=== PATIENT | female | born 1995 | race Caucasian/White ===

== ENCOUNTER 2016-12-15 15:35 | Emergency (ER) | payer OTHER ==
[~2016-12-15] VITALS: Ht 162.6 cm; Wt 48.0 kg
[~2016-12-15 15:35] MED LIST: FIORIC PO
[2016-12-15 15:40] VITALS: BP 104/66; PULSE 65; RESP 16; TEMP 98.2; O2SAT 98
[2016-12-15] MEDS ORDERED: PERM5CRE TOPICAL (15:59)
--- NOTE | 2016-12-15 16:06 | PD ---
HPI Chief Complaint: Skin Problem Time Seen by Provider: 16:00 Travel History International Travel<30 days: No Contact w/Intl Traveler<30days: No Traveled to known affect area: No History of Present Illness HPI 21-year-old presents to the emergency room for evaluation of itchy red spots that have been ongoing for the past week. Patient thought that they were bug bites but states they seem to be spreading. They started on her thighs and have since spread to her abdomen, bra line, ankles, left upper arm, and right wrist. She states itching is severe. She took Benadryl one time which didn't relieve her symptoms. Her boyfriend has similar symptoms between his fingers. PFSH Past Medical History Developmental Delay: Yes Diminished Hearing: No Gastrointestinal Disorders: Yes ("CHRONIC CONSTIPATION") Kidney Stones: Yes Immunizations Current: Yes Migraines: Yes Tetanus Vaccination: < 5 Years Influenza Vaccination: No ?: Not : 0 Social History Alcohol Use: No Tobacco Use: Yes (1/2 PPD) Substance Use: No Allergies-Medications (Allergen,Severity, Reaction): Coded Allergies: Benadryl (Unverified Allergy, Severe, RASH, 12/15/16) Latex (Unverified Allergy, Severe, RASH, 12/15/16) Reported Meds & Prescriptions Reported Meds & Active Scripts Active Review of Systems Except as stated in HPI: all other systems reviewed are Neg Physical Exam Narrative GENERAL: Well-nourished, well-developed female in no acute distress. Afebrile. Ambulatory. SKIN: Focused skin assessment warm/dry. There are multiple 1 mm maculopapular, erythematous lesions to the abdomen, waistline, ankles, and wrist. No excoriations. Breakfast, lunch, dinner sign. Some burrowing noted. HEAD: Normocephalic. EYES: No scleral icterus. No injection or drainage. NECK: Supple, trachea midline. No JVD or lymphadenopathy. CARDIOVASCULAR: Regular rate and rhythm without murmurs, gallops, or rubs. RESPIRATORY: Breath sounds equal bilaterally. No accessory muscle use. PSYCHIATRIC: No delusional thought processes. No hallucinations. Data Data Last Documented VS Vital Signs Date Time Temp Pulse Resp B/P Pulse Ox O2 Delivery O2 Flow Rate FiO2 12/15/16 15:40 98.2 65 16 104/66 98 MDM Medical Decision Making Medical Screen Exam Complete: Yes Emergency Medical Condition: Yes Medical Record Reviewed: Yes Differential Diagnosis Allergic reaction versus contact dermatitis versus scabies Narrative Course 21-year-old female presents to the emergency room for evaluation of itchy rash for the past week. Patient thought they were bug bites but they kept spreading. Mostly located around thighs, wrist, and abdomen. Boyfriend has similar symptoms in interdigital webspaces. Physical exam reveals multiple 1 mm maculopapular, erythematous lesions to the abdomen, waistline, ankles, and wrist. No excoriations. Breakfast, lunch, dinner sign. Some burrowing noted. History and physical exam are consistent with scabies. Patient discharged with permethrin and told to follow up with her primary care physician or return for worsening symptoms. She understands and agrees to plan. Diagnosis Primary Impression: Scabies Referrals: Primary Care Physician Patient Instructions: General Instructions, Scabies (ED) Additional Instructions: Rest and drink plenty of fluids. Apply cream to entire body. Leave on for 8 hours. Wash off. Reapply in one week if new spots appear. Follow-up with a primary care physician. Return to the emergency room for worsening symptoms. Med/Other Pt SpecificInfo: Prescription(s) given Scripts Permethrin Topical 5% 5% Cream1 Applic TOPICAL ONCE #1 TUBE Ref 0 Prov:Cesar Sutehrland MD 12/15/16 Disposition: 01 DISCHARGE HOME Condition: Stable Maddy Lane Dec 15, 2016 16:06
== END 2016-12-15 16:13 | disposition home or self-care (01) ==
LOC: PHEFT 15:35
DX: B86 Scabies (principal); F17.200 Nicotine dependence, unspecified, uncomplicated; Z87.19 Personal history of other diseases of the digestive system; Z87.448 Personal history of other diseases of urinary system; Z86.69 Personal history of other diseases of the nervous system and sense organs
CPT/HCPCS: 99283

== ENCOUNTER 2017-03-24 19:26 | Emergency (ER) | payer OTHER ==
[~2017-03-24] VITALS: Ht 165.1 cm; Wt 47.7 kg
[~2017-03-24 19:26] MED LIST changes: -FIORIC PO; +PERM5CRE TOPICAL
[2017-03-24 19:32] VITALS: BP 115/67; PULSE 97; RESP 18; TEMP 98.5; O2SAT 97
[2017-03-24] MEDS ORDERED: ZOFR4TAB PO (19:46)
[2017-03-24] MEDS ORDERED: OMEP20TA PO (19:46)
--- NOTE | 2017-03-24 19:53 | PD ---
HPI Chief Complaint: GI Complaint Time Seen by Provider: 19:49 Travel History International Travel<30 days: No Contact w/Intl Traveler<30days: No Traveled to known affect area: No History of Present Illness HPI The patient is a 21-year-old female that complains of vomiting and headache for a month. She saw her primary care physician in [address] [place] [address] and he gave her only 8, 4 mg Zofran. She states she is trying to save them and did not take any Zofran today. 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 She also complains of generalized myalgias. She was referred to a frame table operator helper and she will set up an appointment tomorrow for this. She denies vomiting any blood. She denies any fever. She denies any wheezing. She states she has left lower abdominal pain which is a 6/10. The pain is a burning type of pain. Her last menstrual period was light and it was on the 24th of last month. In addition to 4 mg Zofran and she was given omeprazole 20 mg to take once daily. PFSH Past Medical History Cardiovascular Problems: Yes (HEART BEATS FAST AND IRREG) Developmental Delay: Yes Diminished Hearing: No Gastrointestinal Disorders: Yes ("CHRONIC CONSTIPATION") Kidney Stones: Yes Immunizations Current: Yes Migraines: Yes ?: Not LMP: 02-28-17 : 0 Social History Alcohol Use: No Tobacco Use: Yes (/ PPD) Substance Use: No Allergies-Medications (Allergen,Severity, Reaction): Coded Allergies: diphenhydramine (Unverified Allergy, Severe, RASH, 03/24/17) latex (Unverified Allergy, Severe, RASH, 03/24/17) Reported Meds & Prescriptions Reported Meds & Active Scripts Active Zofran (Ondansetron HCl) 8 Mg Tab 8 Mg PO TID Reported Metoprolol Tartrate 25 Mg Tab 25 Mg PO DAILY Abilify (Aripiprazole) 10 Mg Tab 10 Mg PO DAILY Fluoxetine (Fluoxetine HCl) 20 Mg Capsule 20 Mg PO DAILY Zofran (Ondansetron HCl) 4 Mg Tab 4 Mg PO Q12HR PRN Omeprazole 20 Mg Tab 20 Mg PO DAILY Review of Systems Except as stated in HPI: all other systems reviewed are Neg Physical Exam Narrative GENERAL: The patient is alert, oriented 3, slightly dehydrated-appearing and no respiratory distress. Her vital signs are normal. SKIN: Focused skin assessment warm/dry. HEAD: Atraumatic. Normocephalic. EYES: Pupils equal and round. No scleral icterus. No injection or drainage. ENT: No nasal bleeding or discharge. Mucous membranes pink and moist. NECK: Trachea midline. No JVD. CARDIOVASCULAR: Regular rate and rhythm. No murmur appreciated. RESPIRATORY: No accessory muscle use. Clear to auscultation. Breath sounds equal bilaterally. GASTROINTESTINAL: Abdomen soft, with slight tenderness to direct palpation in the left lower quadrant, nondistended. Hepatic and splenic margins not palpable. No guarding or rebound is present. MUSCULOSKELETAL: No obvious deformities. No clubbing. No cyanosis. No edema. NEUROLOGICAL: Awake and alert. No obvious cranial nerve deficits. Motor grossly within normal limits. Normal speech. PSYCHIATRIC: Appropriate mood and affect; insight and judgment normal. Data Data Last Documented VS Vital Signs Date Time Temp Pulse Resp B/P (MAP) Pulse Ox O2 Delivery O2 Flow Rate FiO2 03/24/17 20:20 16 99 Room Air 03/24/17 19:32 98.5 97 115/67 (83) Orders Orders Beta Hcg (Quant/Titer) (03/24/17 19:53) Complete Blood Count With Diff (03/24/17 19:53) Comprehensive Metabolic Panel (03/24/17 19:53) Lipase (03/24/17 19:53) Urinalysis - C+S If Indicated (03/24/17 19:53) Iv Access Insert/Monitor (03/24/17 19:53) Ecg Monitoring (03/24/17 19:53) Oximetry (03/24/17 19:53) Ondansetron Inj (Zofran Inj) (03/24/17 20:00) Sodium Chloride 0.9% Flush (Ns Flush) (03/24/17 20:00) Hydromorphone Pf Inj (Dilaudid Pf Inj) (03/24/17 20:00) Sodium Chlor 0.9% 1000 Ml Inj (Ns 1000 M (03/24/17 20:00) Labs Laboratory Tests Test 03/24/17 20:00 03/24/17 20:05 Urine Collection Type VOIDED Urine Color YELLOW Urine Turbidity CLEAR Urine pH 7.0 Urine Specific [place] 1.016 Urine Protein NEG mg/dL Urine Glucose (UA) NEG mg/dL Urine Ketones NEG mg/dL Urine Occult Blood NEG Urine Nitrite NEG Urine Bilirubin NEG Urine Leukocyte Esterase NEG Urine WBC 0-2 /hpf Urine Squamous Epithelial Cells 6-8 /hpf Urine Bacteria FEW /hpf Microscopic Urinalysis Comment CULT NOT INDICATED White Blood Count 9.8 TH/MM3 Red Blood Count 4.53 MIL/MM3 Hemoglobin 14.4 GM/DL Hematocrit 41.3 % Mean Corpuscular Volume 91.1 FL Mean Corpuscular Hemoglobin 31.9 PG Mean Corpuscular Hemoglobin Concent 35.0 % Red Cell Distribution Width 11.7 % Platelet Count 221 TH/MM3 Mean Platelet Volume 8.7 FL Neutrophils (%) (Auto) 60.5 % Lymphocytes (%) (Auto) 29.7 % Monocytes (%) (Auto) 5.3 % Eosinophils (%) (Auto) 2.9 % Basophils (%) (Auto) 1.6 % Neutrophils # (Auto) 5.9 TH/MM3 Lymphocytes # (Auto) 2.9 TH/MM3 Monocytes # (Auto) 0.5 TH/MM3 Eosinophils # (Auto) 0.3 TH/MM3 Basophils # (Auto) 0.2 TH/MM3 CBC Comment DIFF FINAL Differential Comment Blood Urea Nitrogen 7 MG/DL Creatinine 0.62 MG/DL Random Glucose 88 MG/DL Total Protein 7.3 GM/DL Albumin 4.0 GM/DL Calcium Level 8.3 MG/DL Alkaline Phosphatase 64 U/L Aspartate Amino Transf (AST/SGOT) 10 U/L Alanine Aminotransferase (ALT/SGPT) 15 U/L Total Bilirubin 0.4 MG/DL Sodium Level 139 MEQ/L Potassium Level 3.8 MEQ/L Chloride Level 109 MEQ/L Carbon Dioxide Level 23.0 MEQ/L Anion Gap 7 MEQ/L Estimat Glomerular Filtration Rate 120 ML/MIN Lipase 183 U/L Human Chorionic Gonadotropin, Quant LESS THAN 1 MIU/ML MDM Medical Decision Making Medical Screen Exam Complete: Yes Emergency Medical Condition: Yes Medical Record Reviewed: Yes Interpretation(s) The CBC is normal. The complete metabolic profile shows a calcium of 8.3 but is otherwise unremarkable. The lipase is normal and beta hCG is less than 1. The urinalysis is normal. Differential Diagnosis , dehydration, colitis, electrolyte disorder, anemia Narrative Course It is now 9:52 PM and the patient feels better having gotten the Zofran. Her blood work is essentially normal. She will be given a prescription for 8 mg Zofran. She needs to follow-up with a frame table operator helper and her primary care physician. Additional Instructions: As you planned to do, and as we discussed, follow-up with your primary care physician and your frame table operator helper. The Zofran is one tablet 3 times daily. This is a stronger dose of Zofran. Med/Other Pt SpecificInfo: Prescription(s) given Scripts Ondansetron (Zofran) 8 Mg Tab 8 MG PO TID for Nausea/Vomiting, #30 TAB 0 Refills Prov: Richard Astorga MD 03/24/17 Disposition: 01 DISCHARGE HOME Condition: Stable Richard Astorga MD Mar 24, 2017 19:53
[2017-03-24] MEDS ORDERED: FLUO20CA12 PO (19:56)
[2017-03-24] MEDS ORDERED: ARIP1TAB5 PO (19:56)
[2017-03-24] MEDS ORDERED: METO25TA3 PO (19:56)
[2017-03-24] MEDS ORDERED: HYDROmorphone HCL PF 1 MG/ML VIAL IVP ONE (20:00)
[2017-03-24] MEDS ORDERED: ONDANSETRON HCL 4 MG/2 ML VIAL IVP ONE (20:00)
[2017-03-24] MEDS ORDERED: SODIUM CHLORIDE 0.9% FLUSH 10 ML FLUSH IV FLUSH PRN (20:00)
[2017-03-24 20:20] VITALS: RESP 16; O2SAT 99
[2017-03-24 20:23] LABS: AUTOMATED NEUTROPHIL # 5.9 TH/MM3 (1.8-7.7); BASOPHIL # 0.2 TH/MM3 (0-0.2); BASOPHIL % 1.6 % (0.0-2.0); EOSINOPHIL # 0.3 TH/MM3 (0-0.4); EOSINOPHIL % 2.9 % (0.0-4.0); HEMATOCRIT 41.3 % (35.0-46.0); HEMO FLAGS DIFF FINAL; LYMPH % 29.7 % (9.0-44.0); LYMPHOCYTE # 2.9 TH/MM3 (1.0-4.8); MEAN CELL VOLUME 91.1 FL (80.0-100.0); MEAN CORPUSCULAR HEMOGLOBIN 31.9 PG (27.0-34.0); MONO % 5.3 % (0.0-8.0); NEUT % 60.5 % (16.0-70.0); PLATELET COUNT 221 TH/MM3 (150-450); RED BLOOD COUNT 4.53 MIL/MM3 (4.00-5.30); RED CELL DISTRIBUTION WIDTH 11.7 % (11.6-17.2); WHITE BLOOD COUNT 9.8 TH/MM3 (4.0-11.0)
[2017-03-24 20:24] LABS: BLOOD, URINE NEG (NEG); GLUCOSE,URINE NEG (NEG); KETONE, URINE NEG (NEG); NITRITE,URINE NEG (NEG)
[2017-03-24] MEDS: SODIUM CHLOR 0.9% 1000 ML INJ 1,000 ML IV SCH ×2 (20:25→20:56)
[2017-03-24 20:49] LABS: CHLORIDE 109 MEQ/L (98-107); POTASSIUM 3.8 MEQ/L (3.5-5.1); SODIUM (NA) 139 MEQ/L (136-145)
[2017-03-24 20:50] LABS: METHOD OF COLLECTION VOIDED; URINE COLOR YELLOW (YELLW/STRAW)
[2017-03-24 20:51] LABS: BACTERIA, URINE FEW /hpf; COMMENT (UR) CULT NOT INDICATED; CULTURE IF INDICATED CULT NOT INDICATED; WBC, URINE 0-2 /hpf (0-5)
[2017-03-24 20:52] LABS: ANION GAP 7 MEQ/L (5-15)
[2017-03-24 20:53] LABS: BLOOD UREA NITROGEN 7 MG/DL (7-18)
[2017-03-24 20:55] LABS: ALT (GPT) 15 U/L (10-53); AST (GOT) 10 U/L (15-37)
[2017-03-24 20:56] LABS: GLOMERULAR FILTRATION RATE 120 ML/MIN (>89)
[2017-03-24 20:57] LABS: TOTAL BILIRUBIN ADULT 0.4 MG/DL (0.2-1.0)
[2017-03-24 20:58] LABS: ALKALINE PHOSPHATASE 64 U/L (45-117)
[2017-03-24 21:01] LABS: BETA HCG QUANT LESS THAN 1 MIU/ML (0-5)
[2017-03-24] MEDS ORDERED: ZOFR8TAB PO (21:51)
== END 2017-03-24 23:27 | disposition home or self-care (01) ==
LOC: PHED 19:26
DX: R51 Headache (principal); R11.10 Vomiting, unspecified; R10.32 Left lower quadrant pain
CPT/HCPCS: 80053; 81001; 83690; 84702; 85025; 96361; 96374; 96375; 99284; J1170; J2405; J7030

== ENCOUNTER 2017-04-17 21:31 | Emergency (ER) | payer OTHER ==
[~2017-04-17] VITALS: Ht 165.1 cm; Wt 47.0 kg
[~2017-04-17 21:31] MED LIST changes: +ARIP1TAB5 PO; +FLUO20CA12 PO; +METO25TA3 PO; +OMEP20TA PO; -PERM5CRE TOPICAL; +ZOFR4TAB PO; +ZOFR8TAB PO
[2017-04-17 21:33] VITALS: BP 131/79; PULSE 105; RESP 16; TEMP 99; O2SAT 96
== END 2017-04-18 01:32 | disposition left against medical advice (07) ==
LOC: NED 21:31
DX: R11.2 Nausea with vomiting, unspecified (principal)
CPT/HCPCS: 99281

== ENCOUNTER 2017-08-31 17:33 | Emergency (ER) | payer SELFPAY ==
[~2017-08-31] VITALS: Ht 165.1 cm; Wt 46.4 kg
[~2017-08-31 17:33] MED LIST changes: +ABIL10TA8 PO; -ARIP1TAB5 PO; -OMEP20TA PO; +OMEP20TA93 PO
[2017-08-31 17:40] VITALS: BP 118/67; PULSE 99; RESP 16; TEMP 98.5; O2SAT 98
[2017-08-31 19:00] VITALS: BP 119/69; PULSE 82; RESP 18; O2SAT 98
[2017-08-31] MEDS ORDERED: ONDANSETRON HCL 4 MG/2 ML VIAL IV PUSH ONE (19:30)
[2017-08-31] MEDS ORDERED: SODIUM CHLOR 0.9% 1000 ML INJ 1,000 ML IV ONE (19:30)
[2017-08-31 19:53] LABS: AUTOMATED NEUTROPHIL # 11.9 TH/MM3 (1.8-7.7); BASOPHIL % 0.3 % (0.0-2.0); EOSINOPHIL # 0.2 TH/MM3 (0-0.4); EOSINOPHIL % 1.1 % (0.0-4.0); HEMATOCRIT 44.5 % (35.0-46.0); LYMPH % 10.7 % (9.0-44.0); LYMPHOCYTE # 1.5 TH/MM3 (1.0-4.8); MEAN CORPUSCULAR HGB CONC 33.7 % (32.0-36.0); MEAN PLATELET VOLUME 8.4 FL (7.0-11.0); MONO % 2.2 % (0.0-8.0); MONOCYTE # 0.3 TH/MM3 (0-0.9); NEUT % 85.7 % (16.0-70.0); PLATELET COUNT 271 TH/MM3 (150-450); RED BLOOD COUNT 4.83 MIL/MM3 (4.00-5.30); RED CELL DISTRIBUTION WIDTH 12.9 % (11.6-17.2); WHITE BLOOD COUNT 13.9 TH/MM3 (4.0-11.0)
[2017-08-31 19:58] LABS: BILIRUBIN, URINE NEG (NEG); BLOOD, URINE NEG (NEG); GLUCOSE,URINE NEG (NEG); KETONE, URINE NEG (NEG); NITRITE,URINE POS (NEG); URINE LEUKOCYTE ESTERASE SMALL (NEG)
[2017-08-31] MEDS ORDERED: KETOROLAC TROMETHAMINE 30 MG/ML (IVP) VIAL IV PUSH ONE (20:00)
[2017-08-31 20:05] LABS: BICARBONATE 24.1 MEQ/L (21.0-32.0); CALCIUM 8.4 MG/DL (8.5-10.1)
[2017-08-31 20:09] LABS: CREATININE 0.67 MG/DL (0.50-1.00)
[2017-08-31 20:18] LABS: MUCUS URINE MOD /lpf (OCC); SQUAMOUS EPITHELIAL CELL URINE > 8 /hpf (0-5); URINE COLOR YELLOW (YELLW/STRAW)
[2017-08-31 20:20] LABS: AMORPHOUS SEDIMENT, URINE MOD; BACTERIA, URINE MOD /hpf
--- NOTE | 2017-08-31 20:29 | PD ---
HPI Chief Complaint: Headache Time Seen by Provider: 19:25 Travel History International Travel<30 days: No Contact w/Intl Traveler<30days: No Traveled to known affect area: No History of Present Illness HPI 22-year-old female presents to the emergency department for complaint of headache nausea vomiting myalgias arthralgias and not feeling well. Patient states that symptoms began today. Patient noted nausea vomiting since about 9 AM. Patient is currently menstruating and denies . Patient states she has chronic recurrent headaches on a frequent basis and does not use any [id number] medications as a typically do not provide her any relief of symptoms. Patient had no fever chills. No report of sore throat earache cough congestion or respiratory illness symptoms. Patient denies any diarrhea. Patient denies any dietary indiscretion well water ingestion or foreign travel. No other persons of similar symptoms. Patient states that her headache is typical not sudden onset thunderclap or not worst ever. Patient states she simply has to come to the emergency room for symptomatic relief. Patient denies other concerns or complaints. Patient states typically she can sleep for 3 hours and symptoms seemed to patricia today she said numerous hours and continued to have headaches he decided to come to the emergency room at this time. Typical headache is 10/10 in intensity. PFSH Past Medical History Narrative Medical Bipolar/anxiety depression, tachycardia, recurrent headache, irritable bowel syndrome, schizophrenia; tobacco use marijuana use; nursing notes reviewed Bipolar Disorder: Yes Anxiety: Yes Depression: Yes Cardiovascular Problems: Yes (HEART BEATS FAST AND IRREG) Developmental Delay: Yes Diminished Hearing: No Gastrointestinal Disorders: Yes ("CHRONIC CONSTIPATION" "IBS") GERD: Yes Kidney Stones: Yes Psychiatric: Yes (SCHIZOPHRENIA) Immunizations Current: Yes Migraines: Yes ?: Not LMP: NOW : 0 Past Surgical History Surgical History: No Previous Surgery Social History Alcohol Use: No Tobacco Use: Yes (<1PPD) Substance Use: Yes (MARIJUANA) Allergies-Medications (Allergen,Severity, Reaction): Coded Allergies: diphenhydramine (Unverified Allergy, Severe, RASH, 08/31/17) latex (Unverified Allergy, Severe, RASH, 08/31/17) codeine (Verified Adverse Reaction, Severe, AGITATION, 08/31/17) Reported Meds & Prescriptions Reported Meds & Active Scripts Active No Active Prescriptions or Reported Medications Review of Systems Except as stated in HPI: all other systems reviewed are Neg General / Constitutional: No: Fever, Chills HENT: Positive: Headaches, No: Congestion, Neck Stiffness, Neck Pain Cardiovascular: No: Chest Pain or Discomfort Respiratory: No: Cough, Shortness of Breath Gastrointestinal: Positive: Nausea, Vomiting, No: Diarrhea, Abdominal Pain Genitourinary: Positive: Frequency, Vaginal Bleeding (menses), No: Flank Pain, Discharge Musculoskeletal: Positive: Myalgias, Arthralgias Skin: No Rash Neurologic: Positive: Headache, No: Weakness, Focal Abnormalities, Coordination Problem, Change in Mentation, Slurred Speech Hematologic/Lymphatic: No: Lymph Node Enlargement Physical Exam Narrative GENERAL: Well-developed well-nourished female no acute distress or respiratory distress SKIN: Warm and dry. HEAD: Atraumatic. Normocephalic. EYES: Pupils equal and round. No scleral icterus. No injection or drainage. Extraocular muscles intact. Funduscopic exam no papilledema. ENT: No nasal bleeding or discharge. Mucous membranes pink and moist. NECK: Trachea midline. No JVD. Supple, no meningismus no nuchal rigidity. CARDIOVASCULAR: Increased regular rate and rhythm. RESPIRATORY: No accessory muscle use. Clear to auscultation. Breath sounds equal bilaterally. GASTROINTESTINAL: Abdomen soft, non-tender, nondistended. Hepatic and splenic margins not palpable. MUSCULOSKELETAL: Extremities without clubbing, cyanosis, or edema. No obvious deformities. NEUROLOGICAL: Awake and alert. No obvious cranial nerve deficits. Motor grossly within normal limits. Five out of 5 muscle strength in the arms and legs. Normal speech. PSYCHIATRIC: Appropriate mood and affect; insight and judgment normal. Data Data Last Documented VS Vital Signs Date Time Temp Pulse Resp B/P (MAP) Pulse Ox O2 Delivery O2 Flow Rate FiO2 08/31/17 17:40 98.5 99 16 118/67 (84) 98 Orders Orders ^ Saline Lock (08/31/17 19:25) Complete Blood Count With Diff (08/31/17 19:25) Basic Metabolic Panel (Bmp) (08/31/17 19:25) Urinalysis - C+S If Indicated (08/31/17 19:25) Cath For Specimen (08/31/17 19:25) Ed Urine Pregnancytest Poc (08/31/17 19:25) Sodium Chlor 0.9% 1000 Ml Inj (Ns 1000 M (08/31/17 19:30) Ondansetron Inj (Zofran Inj) (08/31/17 19:30) Ketorolac Inj (Toradol Inj) (08/31/17 20:00) Urine Culture (08/31/17 19:46) Ceftriaxone Inj (Rocephin Inj) (08/31/17 20:30) Labs Laboratory Tests Test 08/31/17 19:35 08/31/17 19:46 White Blood Count 13.9 TH/MM3 Red Blood Count 4.83 MIL/MM3 Hemoglobin 15.0 GM/DL Hematocrit 44.5 % Mean Corpuscular Volume 92.0 FL Mean Corpuscular Hemoglobin 31.0 PG Mean Corpuscular Hemoglobin Concent 33.7 % Red Cell Distribution Width 12.9 % Platelet Count 271 TH/MM3 Mean Platelet Volume 8.4 FL Neutrophils (%) (Auto) 85.7 % Lymphocytes (%) (Auto) 10.7 % Monocytes (%) (Auto) 2.2 % Eosinophils (%) (Auto) 1.1 % Basophils (%) (Auto) 0.3 % Neutrophils # (Auto) 11.9 TH/MM3 Lymphocytes # (Auto) 1.5 TH/MM3 Monocytes # (Auto) 0.3 TH/MM3 Eosinophils # (Auto) 0.2 TH/MM3 Basophils # (Auto) 0.0 TH/MM3 CBC Comment DIFF FINAL Differential Comment Blood Urea Nitrogen 8 MG/DL Creatinine 0.67 MG/DL Random Glucose 91 MG/DL Calcium Level 8.4 MG/DL Sodium Level 138 MEQ/L Potassium Level 4.0 MEQ/L Chloride Level 107 MEQ/L Carbon Dioxide Level 24.1 MEQ/L Anion Gap 7 MEQ/L Estimat Glomerular Filtration Rate 109 ML/MIN Urine Color YELLOW Urine Turbidity MOD Urine pH 7.0 Urine Specific [place] 1.020 Urine Protein NEG mg/dL Urine Glucose (UA) NEG mg/dL Urine Ketones NEG mg/dL Urine Occult Blood NEG Urine Nitrite POS Urine Bilirubin NEG Urine Leukocyte Esterase SMALL Urine WBC 3-5 /hpf Urine Squamous Epithelial Cells > 8 /hpf Urine Amorphous Sediment MOD Urine Bacteria MOD /hpf Urine Mucus MOD /lpf Microscopic Urinalysis Comment CULTURE INDICATED MDM Medical Decision Making Medical Screen Exam Complete: Yes Emergency Medical Condition: Yes Medical Record Reviewed: Yes Interpretation(s) Vital Signs Date Time Temp Pulse Resp B/P (MAP) Pulse Ox O2 Delivery O2 Flow Rate FiO2 08/31/17 17:40 98.5 99 16 118/67 (84) 98 POC hcg: negative UA: Culture indicated positive nitrites positive bacteria CBC & BMP Diagram 08/31/17 19:35 Calcium Level 8.4 L Differential Diagnosis Recurrent headache, migraine, dehydration, viral syndrome, UTI, , electrolyte disturbance Narrative Course IV access obtained specimens collected and sent for resulting; patient administered 1 L normal saline along with Zofran 4 mg IV; [id number] hCG negative Toradol 31 g IV administered Urinalysis is abnormal for many bacteria positive nitrites positive leukocyte esterase culture indicated; patient administered 1 dose of Rocephin 1 g IV Patient is clinically improved and stable for outpatient management Diagnosis Primary Impression: Cephalgia Additional Impression: UTI (urinary tract infection) Referrals: Primary Care Physician 2 days Patient Instructions: General Instructions Additional Instructions: Take medication as prescribed as needed for nausea and/or vomiting Complete course of antibiotic as prescribed Take acetaminophen/Tylenol as needed for fever 100.4F or greater Take ibuprofen 400 mg as often as every 6-8 hours as needed for pain associated inflammation pain greater than 5/10 in intensity or for fever 100.4F or greater Increase fluid hydration Return to the emergency department for any concerns or change in condition Med/Other Pt SpecificInfo: Prescription(s) given Scripts Ondansetron Odt (Zofran Odt) 4 Mg Tab 4 MG SL Q6HR Y for Nausea/Vomiting, #10 TAB 0 Refills Prov: Kayla Cristobal MD 08/31/17 Nitrofurantoin Monohydrate Macrocrystals (Macrobid) 100 Mg Cap 100 MG PO BID for Infection for 10 Days, #20 CAP 0 Refills Prov: Kalya Cristobal MD 08/31/17 Disposition: 01 DISCHARGE HOME Condition: Stable Kayla Cristobal MD Aug 31, 2017 20:29
[2017-08-31 20:30] VITALS: BP 115/59; PULSE 87; RESP 18; O2SAT 97
[2017-08-31] MEDS ORDERED: cefTRIAXone INJ 1,000 MG in SODIUM CHLORIDE 0.9% INJ 100 ML IV ONE (20:30)
[2017-08-31] MEDS ORDERED: MACR100C2 PO (20:36)
[2017-08-31] MEDS ORDERED: ZOFR4TAB3 SL (20:36)
[2017-08-31 21:06] VITALS: RESP 18
[2017-08-31 21:33] VITALS: BP 105/60
== END 2017-08-31 23:52 | disposition home or self-care (01) ==
LOC: PHED 17:33
DX: R51 Headache (principal); N39.0 Urinary tract infection, site not specified; F31.9 Bipolar disorder, unspecified; F20.9 Schizophrenia, unspecified; F41.9 Anxiety disorder, unspecified; F17.210 Nicotine dependence, cigarettes, uncomplicated; Z87.442 Personal history of urinary calculi; Z88.5 Allergy status to narcotic agent
CPT/HCPCS: 80048; 81001; 84703; 85025; 87086; 96361; 96374; 96375; 99284; J0696; J1885; J2405; J7030

== ENCOUNTER 2017-11-13 19:53 | Emergency (ER) | payer SELFPAY ==
[~2017-11-13 19:53] MED LIST changes: -ABIL10TA8 PO; -FLUO20CA12 PO; +MACR100C2 PO; -METO25TA3 PO; -OMEP20TA93 PO; -ZOFR4TAB PO; +ZOFR4TAB3 SL; -ZOFR8TAB PO
[2017-11-13 20:06] VITALS: BP 119/62; PULSE 83; RESP 20; TEMP 98.2; O2SAT 99
--- NOTE | 2017-11-13 20:55 | PD ---
HPI . Pelvic pain Chief Complaint: Abdominal Pain Time Seen by Provider: 20:27 Travel History International Travel<30 days: No Contact w/Intl Traveler<30days: No Traveled to known affect area: No History of Present Illness HPI This patient presents stating that she is having all of the symptoms of but a negative home test. Onset of symptoms was a week ago. She reports nausea and fatigue. She states that smells make her feel sick. Her menstrual period is a week late. She denies dyspareunia. She denies vaginal discharge. She states that she has taken several home test and that they have all been negative. Symptoms are mild with no modifying factors. PFSH Past Medical History Bipolar Disorder: Yes Anxiety: Yes Depression: Yes Cardiovascular Problems: Yes (HEART BEATS FAST AND IRREG) Developmental Delay: Yes Diminished Hearing: No Gastrointestinal Disorders: Yes ("CHRONIC CONSTIPATION" "IBS") GERD: Yes Kidney Stones: Yes Psychiatric: Yes (SCHIZOPHRENIA) Immunizations Current: Yes Migraines: Yes : 0 Social History Alcohol Use: No Tobacco Use: Yes (<1PPD) Substance Use: Yes (MARIJUANA) Allergies-Medications (Allergen,Severity, Reaction): Coded Allergies: diphenhydramine (Unverified Allergy, Severe, RASH, 11/13/17) latex (Unverified Allergy, Severe, RASH, 11/13/17) codeine (Verified Adverse Reaction, Severe, AGITATION, 11/13/17) Reported Meds & Prescriptions Reported Meds & Active Scripts Active Zofran Odt (Ondansetron Odt) 4 Mg Tab 4 Mg SL Q6HR PRN Macrobid (Nitrofurantoin Monoh/Nitrofur Macro) 100 Mg Cap 100 Mg PO BID 10 Days Review of Systems Except as stated in HPI: all other systems reviewed are Neg Physical Exam Narrative GENERAL: Awake and alert and in no acute distress. SKIN: Warm and dry. HEAD: Normocephalic/atraumatic. EYES: Pupils are equal. Extraocular movements are intact. NECK: Normal range of motion. CARDIOVASCULAR: Regular rate and rhythm. RESPIRATORY: Nonlabored respirations. ABDOMEN: Soft. : Normal female external genitalia. There is scant blood in the vaginal vault. Cervical loss is closed. No cervical motion tenderness. MUSCULOSKELETAL: Atraumatic. NEUROLOGICAL: Nonfocal. PSYCHIATRIC: Appropriate mood and affect. Data Data Last Documented VS Vital Signs Date Time Temp Pulse Resp B/P (MAP) Pulse Ox O2 Delivery O2 Flow Rate FiO2 11/13/17 20:06 98.2 83 20 119/62 (81) 99 Orders Orders Gc And Chlamydia Pcr (11/13/17 20:28) Wet Prep Profile (11/13/17 20:28) Urinalysis - C+S If Indicated (11/13/17 20:28) Ed Urine Pregnancytest Poc (11/13/17 20:28) Labs Laboratory Tests Test 11/13/17 20:39 11/13/17 20:46 Urine Color YELLOW Urine Turbidity CLEAR Urine pH 6.0 Urine Specific [place] 1.015 Urine Protein NEG mg/dL Urine Glucose (UA) NEG mg/dL Urine Ketones NEG mg/dL Urine Occult Blood LARGE Urine Nitrite NEG Urine Bilirubin NEG Urine Urobilinogen 0.2 MG/DL Urine Leukocyte Esterase NEG Urine RBC 25-49 /hpf Urine WBC 0-2 /hpf Urine Squamous Epithelial Cells 0-5 /hpf Urine Bacteria FEW /hpf Microscopic Urinalysis Comment CULT NOT INDICATED Clue Cells (Wet Prep) NONE SEEN Vaginal Trichomonas (Wet Prep) NONE SEEN Vaginal Yeast (Wet Prep) NONE SEEN MDM Medical Decision Making Medical Screen Exam Complete: Yes Emergency Medical Condition: Yes Differential Diagnosis Differential diagnosis of pelvic pain includes but is not limited to UTI, PID, ectopic , spontaneous AB, constipation, viral illness Narrative Course This patient presents concern for . She complains of pelvic pain but that is actually a minimal complaint for her. Her main complaints are nausea, fatigue and amenorrhea. She has had negative home tests. Her pelvic exam is pretty benign. She does have some scant bleeding so she is probably starting her menstrual cycle. test here is negative. UA just shows some blood. Wet prep is negative. Diagnosis Primary Impression: Pelvic pain in female Additional Impression: Dysfunctional uterine bleeding Patient Instructions: General Instructions, Pelvic Pain in Women (DC) Disposition: 01 DISCHARGE HOME Condition: Stable Megan Cross MD November 13, 2017 20:55
[2017-11-13 20:57] LABS: BILIRUBIN, URINE NEG (NEG); BLOOD, URINE LARGE (NEG); GLUCOSE,URINE NEG (NEG); KETONE, URINE NEG (NEG); NITRITE,URINE NEG (NEG); URINE COLOR YELLOW (YELLW/STRAW); URINE LEUKOCYTE ESTERASE NEG (NEG)
[2017-11-13 21:04] LABS: BACTERIA, URINE FEW /hpf; SQUAMOUS EPITHELIAL CELL URINE 0-5 /hpf (0-5); WBC, URINE 0-2 /hpf (0-5)
[2017-11-13 21:59] VITALS: BP 117/75; PULSE 85; RESP 16; O2SAT 98
== END 2017-11-13 22:36 | disposition home or self-care (01) ==
LOC: PHED 19:53
DX: R10.2 Pelvic and perineal pain (principal); N93.8 Other specified abnormal uterine and vaginal bleeding; F31.9 Bipolar disorder, unspecified; K21.9 Gastro-esophageal reflux disease without esophagitis; F20.9 Schizophrenia, unspecified; F17.200 Nicotine dependence, unspecified, uncomplicated; F12.90 Cannabis use, unspecified, uncomplicated; Z87.19 Personal history of other diseases of the digestive system; Z87.442 Personal history of urinary calculi
CPT/HCPCS: 81001; 84703; 87210; 87491; 87591; 99283